=== PATIENT | female | born 1995 | race American Indian/Alaskan Native ===

== ENCOUNTER 2016-04-10 17:08 | Outpatient (CLI) | payer MEDICAID ==
[2016-04-10 17:58] VITALS: BP 113/53
[2016-04-10] MEDS ORDERED: LACTATED RINGERS 500 ML IV ONE (19:00)
== END 2016-04-10 20:10 | disposition home or self-care (01) ==
LOC: TRG 17:08
PROVIDERS: ATTEND Obstetrics & Gynecology
DX: O77.9 Labor and delivery complicated by fetal stress, unspecified (principal); O47.03 False labor before 37 completed weeks of gestation, third trimester; Z3A.32 32 weeks gestation of pregnancy
CPT/HCPCS: 59025; J7120

== ENCOUNTER 2016-06-02 04:14 | Inpatient (IN) | payer MEDICAID ==
[2016-06-02] MEDS ORDERED: LACTATED RINGERS 1,000 ML ONE (04:40)
[2016-06-02] MEDS ORDERED: LACTATED RINGERS 1,000 ML IV ONE (05:41)
[2016-06-02] MEDS ORDERED: XYLOCAINE 2% INFILTRATI ONE ×2 (07:53→10:05)
[2016-06-02] MEDS ORDERED: STADOL IV PRN (07:53)
[2016-06-02] MEDS ORDERED: ZOFRAN IV PRN (07:53)
[2016-06-02] MEDS ORDERED: SUBLIMAZE IV PRN ×2 (07:53→10:05)
[2016-06-02] MEDS ORDERED: ePHEDrine SULFATE IV PRN ×3 (07:53→12:29)
[2016-06-02] MEDS ORDERED: BRETHINE IVP PRN ×2 (07:53→10:05)
[2016-06-02] MEDS ORDERED: MINERAL OIL PO PRN ×2 (07:53→10:05)
[2016-06-02] MEDS ORDERED: BRETHINE SUB-Q PRN ×2 (07:53→10:05)
[2016-06-02] MEDS ORDERED: PITOCin/NS 20 UNIT/1000ML DRIP 20 UNITS/1,000 ML BAG IV SCH (08:00)
[2016-06-02] MEDS ORDERED: PITOCin/NS 30 UNIT/500ML 30 UNITS/500 ML BAG IV SCH ×3 (08:00→11:00)
[2016-06-02] MEDS: LACTATED RINGERS 1,000 ML IV SCH ×2 (08:22→12:32)
[2016-06-02 08:50] LABS: Basophils % (Auto) 0.3 % (0.0-1.8); Eosinophils % (Auto) 0.1 % (0.0-4.3); Hematocrit 32.3 % (30.3-42.9); Hemoglobin 10.5 gm/dl (10.1-14.3); Mean Corpuscular HGB Conc 33 % (30-34); Mean Corpuscular Hemoglobin 28 pg (28-32); Mean Corpuscular Volume 87 fl (79-97); Platelet Count 171 K/mm3 (140-440); Red Blood Count 3.71 M/mm3 (3.65-5.03); Red Cell Distribution Width 14.6 % (13.2-15.2); White Blood Count 10.4 K/mm3 (4.5-11.0)
--- NOTE | 2016-06-02 10:11 | History and Physical Report ---
History of Present Illness Date of examination: 06/02/16 Date of admission: 06/02/16 09:57 Chief complaint: contractions History of present illness: Pt admitted in active labor EDC Calculations LMP: 06/02/2016 EDC Confirmation: 06/02/2016 Gestational Age: 12 5/7 weeks Past History : 3 Term Births: 0 Premature Births: 0 Living Children: 0 Para: 0 Mult. Births: 0 Aborta: 2 Elect. Ab: 1 Spont. Ab: 1 Ectopics: 0 # 1 Delivery date: 2009 Weeks Gestation: 6 Delivery type: EAB # 2 Delivery date: 05/2015 Weeks Gestation: ? 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 of genital herpes: no Partner hx. of genital herpes: no Genetic History Congenital Heart Defect: Mom: no Dad: no Jose Disease: Mom: no Dad: no Thalassemia Mom: no Dad: no Neural Tube Defect Mom: no Dad: no Down's Syndrome Mom: no Dad: no Clark-Sachs Mom: no Dad: no Sickle Cell Disease/Trait Mom: no Dad: no Hemophilia Mom: no Dad: no Muscular Dystrophy Mom: no Dad: no Cystic Fibrosis Mom: no Dad: no Phillips Chorea Mom: no Dad: no Mental Retardation Mom: no Dad: no Fragile X Mom: no Dad: no Other Genetic/Chromosomal Disorder Mom: no Dad: no Child w/other defect Mom: no Dad: no Current Allergies (reviewed today): No known allergies Past History Past Medical History: no pertinent history Past Surgical History: no surgical history 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: 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: abnormal PAP smear Family/Genetic History: none Social history: no significant social history, single - Obstetrical History Expected Date of Delivery: 06/02/16 Actual Gestation: 40 Week(s) 0 Day(s) : 2 Medications and Allergies Allergies Allergy/AdvReac Type Severity Reaction Status Date / Time No Known Allergies Allergy Verified 04/10/16 18:06 Home Medications Medication Instructions Recorded Confirmed Last Taken Type No Known Home Medications [No 06/02/16 06/02/16 Unknown History Reported Home Medications] Active Meds: Active Medications Butorphanol Tartrate (Stadol) 2 mg IV Q2H PRN PRN Reason: Pain , Severe (7-10) Fentanyl (Sublimaze) 100 mcg IV Q2H PRN PRN Reason: Labor Pain Lactated Ringer's (Lactated Ringers) 1,000 mls @ 125 mls/hr IV DIRECT ANASTACIO Last Admin: 06/02/16 08:22 Dose: 125 mls/hr Oxytocin/Sodium Chloride (Pitocin/Ns 20 Unit/1000ml Drip) 20 units in 1,000 mls @ 125 mls/hr IV DIRECT ANASTACIO Oxytocin/Sodium Chloride (Pitocin/Ns 30 Unit/500ml) 30 units in 500 mls @ 1 mls /hr IV TITR ANASTACIO; 1 MILLIUNITS/MIN PRN Reason: Protocol Oxytocin/Sodium Chloride (Pitocin/Ns 30 Unit/500ml) 30 units in 500 mls @ 0 mls /hr IV TITR ANASTACIO; Per Protocol PRN Reason: Protocol Mineral Oil (Mineral Oil) 30 ml PO QHS PRN PRN Reason: Constipation Ondansetron HCl (Zofran) 4 mg IV Q8H PRN PRN Reason: Nausea And Vomiting Review of Systems All systems: negative - Vital Signs Vital signs: Vital Signs Temp Pulse Resp BP 98.8 F 73 18 139/76 06/02/16 05:15 06/02/16 05:15 06/02/16 05:15 06/02/16 05:15 Temp Pulse Resp BP Pulse Ox 98.8 F 76 18 135/73 98 06/02/16 05:15 06/02/16 10:02 06/02/16 05:15 06/02/16 09:29 06/02/16 10:02 - Physical Exam Cardiovascular: Normal S1, Normal S2 Lungs: Positive: Normal air movement Abdomen: Positive: normal appearance, soft. Negative: distention, tenderness Genitourinary (Female): Positive: normal external genitalia, normal perenium Vulva: both: normal - Obstetrical FHR: category 1 Cervical Dilatation: 4.5 Cervical Effacement Percentage: 80 station: -1 Results Result Diagrams: 06/02/16 07:20 Abnormal lab results 06/02/16 Range/Units 07:20 Delta % (Auto) 8.8 H (0.0-7.3) % Delta # 0.9 H (0.0-0.8) K/mm3 Seg Neutrophils % 73.8 H (40.0-70.0) % All other labs normal. Assessment and Plan - Patient Problems (1) 40 weeks gestation of Current Visit: Yes Status: Acute (2) Active labor at term Current Visit: Yes Status: Acute Plan to address problem: -anticipate -pitocin if needed
[2016-06-02] MEDS ORDERED: ePHEDrine SULFATE ONE (10:28)
[2016-06-02] MEDS ORDERED: LACTATED RINGERS 1,000 ML IV SCH (11:00)
[2016-06-02] MEDS ORDERED: fentaNYL-BUPIV 2 MCG/ML-0.125% 200 MCG/100 ML BAG EPIDURAL ONE (12:10)
[2016-06-02] MEDS ORDERED: NARCAN 2 MG/2 ML IV PRN (12:29)
--- NOTE | 2016-06-02 12:29 | Anesthesia Consultation ---
Anesthesia Consult and Med Hx Date of service: 06/02/16 - Airway Anesthetic Teeth Evaluation: Good ROM Head & Neck: Adequate Mental/Hyoid Distance: Adequate Mallampati Class: Class II Intubation Access Assessment: Probably Good - Pre-Operative Health Status ASA Pre-Surgery Classification: ASA2, Emergency Proposed Anesthetic Plan: Epidural, Spinal - Pulmonary Hx Asthma: No - Cardiovascular System Hx Hypertension: No - Central Nervous System Hx Seizures: No Hx Psychiatric Problems: No - Endocrine Hx Renal Disease: No Hx Hypothyroidism: No Hx Hyperthyroidism: No - Hematic Hx Anemia: No Hx Sickle Cell Disease: Yes (trait) - Other Systems Hx Alcohol Use: No Hx Obesity: Yes
--- NOTE | 2016-06-02 12:42 | Progress Note ---
Assessment and Plan - Patient Problems (1) 40 weeks gestation of Current Visit: Yes Status: Acute (2) Active labor at term Current Visit: Yes Status: Acute Plan to address problem: -pitocin at this time -anticipate vaginal delivery Subjective - Subjective Date of service: 06/02/16 Principal diagnosis: Active labor at term Interval history: Pt comfortable with epidural in in place. Patient reports: movement normal, no new complaints Objective - Vital Signs Vital Signs: Vital Signs - 12hr 06/02/16 06/02/16 06/02/16 05:15 05:16 09:22 Temperature 98.8 F Pulse Rate 73 82 Pulse Rate [ 73 From Monitor] Respiratory 18 Rate Blood Pressure 139/76 Blood Pressure 139/76 [Left Arm] O2 Sat by Pulse 98 Oximetry 06/02/16 06/02/16 06/02/16 09:27 09:29 09:32 Temperature Pulse Rate 82 72 77 Pulse Rate [ From Monitor] Respiratory Rate Blood Pressure 135/73 Blood Pressure [Left Arm] O2 Sat by Pulse 98 97 Oximetry 06/02/16 06/02/16 06/02/16 09:37 09:42 09:47 Temperature Pulse Rate 79 78 78 Pulse Rate [ From Monitor] Respiratory Rate Blood Pressure Blood Pressure [Left Arm] O2 Sat by Pulse 98 97 98 Oximetry 06/02/16 06/02/16 06/02/16 09:52 09:57 10:02 Temperature Pulse Rate 91 H 78 76 Pulse Rate [ From Monitor] Respiratory Rate Blood Pressure Blood Pressure [Left Arm] O2 Sat by Pulse 95 98 98 Oximetry 06/02/16 06/02/16 06/02/16 11:06 11:11 11:13 Temperature Pulse Rate 101 H 60 76 Pulse Rate [ From Monitor] Respiratory Rate Blood Pressure 145/89 139/68 Blood Pressure [Left Arm] O2 Sat by Pulse 91 98 Oximetry 06/02/16 06/02/16 06/02/16 11:16 11:21 11:23 Temperature Pulse Rate 76 78 81 Pulse Rate [ From Monitor] Respiratory Rate Blood Pressure 153/78 Blood Pressure [Left Arm] O2 Sat by Pulse 99 99 Oximetry 06/02/16 06/02/16 06/02/16 11:25 11:26 11:27 Temperature Pulse Rate 77 81 76 Pulse Rate [ From Monitor] Respiratory Rate Blood Pressure 146/67 127/60 Blood Pressure [Left Arm] O2 Sat by Pulse 99 Oximetry 06/02/16 06/02/16 06/02/16 11:29 11:31 11:33 Temperature Pulse Rate 90 78 68 Pulse Rate [ From Monitor] Respiratory Rate Blood Pressure 130/62 130/69 124/64 Blood Pressure [Left Arm] O2 Sat by Pulse 98 Oximetry 06/02/16 06/02/16 06/02/16 11:35 11:36 11:37 Temperature Pulse Rate 64 68 70 Pulse Rate [ From Monitor] Respiratory Rate Blood Pressure 126/66 124/64 Blood Pressure [Left Arm] O2 Sat by Pulse 98 Oximetry 06/02/16 06/02/16 06/02/16 11:39 11:41 11:43 Temperature Pulse Rate 70 68 71 Pulse Rate [ From Monitor] Respiratory Rate Blood Pressure 127/67 124/67 126/71 Blood Pressure [Left Arm] O2 Sat by Pulse 98 Oximetry 06/02/16 06/02/16 06/02/16 11:45 11:46 11:47 Temperature Pulse Rate 67 71 72 Pulse Rate [ From Monitor] Respiratory Rate Blood Pressure 124/69 127/71 Blood Pressure [Left Arm] O2 Sat by Pulse 98 Oximetry 06/02/16 06/02/16 06/02/16 11:49 11:51 11:53 Temperature Pulse Rate 73 70 67 Pulse Rate [ From Monitor] Respiratory Rate Blood Pressure 130/70 122/67 121/58 Blood Pressure [Left Arm] O2 Sat by Pulse 98 Oximetry 06/02/16 06/02/16 06/02/16 11:55 11:56 11:57 Temperature Pulse Rate 66 63 63 Pulse Rate [ From Monitor] Respiratory Rate Blood Pressure 102/65 111/56 Blood Pressure [Left Arm] O2 Sat by Pulse 99 Oximetry 06/02/16 06/02/16 06/02/16 11:59 12:01 12:06 Temperature Pulse Rate 70 71 69 Pulse Rate [ From Monitor] Respiratory Rate Blood Pressure 116/58 114/55 Blood Pressure [Left Arm] O2 Sat by Pulse 97 98 Oximetry 06/02/16 06/02/16 06/02/16 12:11 12:16 12:21 Temperature Pulse Rate 66 66 69 Pulse Rate [ From Monitor] Respiratory Rate Blood Pressure 115/53 Blood Pressure [Left Arm] O2 Sat by Pulse 98 98 100 Oximetry 06/02/16 06/02/16 12:26 12:31 Temperature Pulse Rate 71 67 Pulse Rate [ From Monitor] Respiratory Rate Blood Pressure 110/58 Blood Pressure [Left Arm] O2 Sat by Pulse 98 98 Oximetry - Exam Cervical Dilatation: 5 (SROM with clear fluid. ISE and IUPC placed without difficulty) station: 90 Uterine Contraction Duration: -1 Uterine Contraction Pattern: Regular Uterine Tone Measurement Phase: Resting - Labs Labs: Abnormal Labs 06/02/16 07:20 [place] % (Auto) 8.8 H [place] # 0.9 H Seg Neutrophils % 73.8 H Laboratory Results - last 24 hr 06/02/16 06/02/16 07:20 07:20 WBC 10.4 RBC 3.71 Hgb 10.5 Hct 32.3 MCV 87 MCH 28 MCHC 33 RDW 14.6 Plt Count 171 Lymph % (Auto) 17.0 [place] % (Auto) 8.8 H Eos % (Auto) 0.1 Baso % (Auto) 0.3 Lymph # 1.8 [place] # 0.9 H Eos # 0.0 Baso # 0.0 Seg Neutrophils % 73.8 H Seg Neutrophils # 7.7 Blood Type O POSITIVE Antibody Screen Negative
[2016-06-02] MEDS ORDERED: fentaNYL-BUPIV 2 MCG/ML-0.125% 200 MCG/100 ML BAG EPIDURAL SCH (13:00)
[2016-06-02] MEDS: PITOCin/NS 30 UNIT/500ML 30 UNITS/500 ML BAG IV SCH ×5 (13:21→15:30)
[2016-06-02] MEDS ORDERED: MILK OF MAGNESIA PO PRN (18:11)
[2016-06-02] MEDS ORDERED: TYLENOL PO PRN (18:11)
[2016-06-02] MEDS ORDERED: DULCOLAX PR PRN (18:11)
[2016-06-02] MEDS ORDERED: LANSINOH TP PRN (18:11)
[2016-06-02] MEDS ORDERED: PHENERGAN PO PRN (18:11)
[2016-06-02] MEDS ORDERED: TUCKS PAD TP PRN (18:11)
[2016-06-02] MEDS ORDERED: NORCO 5/325 PO PRN (18:11)
[2016-06-02] MEDS ORDERED: BENADRYL PO PRN (18:11)
[2016-06-02] MEDS ORDERED: DERMOPLAST TP PRN (18:11)
[2016-06-02] MEDS ORDERED: PHENERGAN PR PRN (18:11)
--- NOTE | 2016-06-02 18:18 | Procedure Note ---
OB Delivery Note - Delivery Date of Delivery: 06/02/16 Surgeon: GRACIELA ANDERSON Estimated blood loss: 200cc - Vaginal Delivery presentation: vertex Delivery position: OA Intrapartum events: none Delivery induction: none Delivery augmentation: pitocin Delivery monitor: external FHT, external uterine, internal FHT, internal uterine Route of delivery: Delivery placenta: spontaneous Delivery cord: nuchal cord (x1 easily reduced), 3 umbilical vessels Episiotomy: none Delivery laceration: 1st degree (right labial) Delivery repair: vicryl (3-0) Anesthesia: epidural Delivery comments: Delivery as above without complications. No shoulder dystocia. Nuchal cord easily reduced after delivery of the head. Cord clamped x 2 and cut x1 by foc and infant was placed on maternal abdomen skin to skin. Placenta delivered spontaneously intact. Cord blood was collected. 1st degree rt labial laceration noted and repaired in usual fashion. EBL 200ml. and mother stable in LDR. - Infant A at 1 minute: 8 at 5 minutes: 9 Gender: Female (6lbs 1 oz)
[2016-06-02] MEDS ORDERED: SODIUM CHLORIDE FLUSH SYRINGE 10 ML IV NR (19:00)
[2016-06-03] MEDS: MOTRIN PO SCH ×3 (01:19→13:45)
[2016-06-03 06:15] LABS: Hematocrit 26.5 % (30.3-42.9); Hemoglobin 8.7 gm/dl (10.1-14.3)
--- NOTE | 2016-06-03 10:24 | Progress Note ---
Assessment and Plan - Patient Problems (1) 40 weeks gestation of Current Visit: Yes Status: Resolved (2) Active labor at term Current Visit: Yes Status: Resolved (3) Normal delivery at term Current Visit: Yes Status: Acute Plan to address problem: -routine pp care -d/c home in am Subjective - Subjective Date of service: 06/03/16 Principal diagnosis: PPD #1 s/p Interval history: Pt doing well. She desires d/c home in am. Patient reports: appetite normal, voiding normally, pain well controlled, no dizzy ambulation [place]: doing well, nursing well Objective - Vital Signs Latest vital signs: Vital Signs Temp Pulse Pulse Resp BP BP Pulse Ox 06/03/16 07:45 97.8 F 82 20 127/72 06/03/16 01:00 98.3 F 73 20 142/92 06/02/16 20:45 98.6 F 86 20 142/85 06/02/16 20:00 86 18 132/73 06/02/16 19:46 86 132/73 06/02/16 19:35 100 H 18 130/75 06/02/16 19:32 100 H 130/75 06/02/16 19:16 86 145/63 06/02/16 19:02 91 H 194/88 06/02/16 18:46 88 144/71 06/02/16 18:31 85 128/60 06/02/16 18:16 86 128/61 06/02/16 18:05 93 H 99 06/02/16 18:01 95 H 123/58 06/02/16 18:00 92 H 99 06/02/16 17:57 98 H 129/59 06/02/16 17:55 100 H 99 06/02/16 17:50 92 H 99 06/02/16 17:46 98 H 88/45 06/02/16 17:45 106 H 99 06/02/16 17:40 113 H 100 06/02/16 17:35 95 H 99 06/02/16 17:33 103 H 130/73 06/02/16 17:30 92 H 100 06/02/16 17:25 98 H 100 06/02/16 17:20 85 100 06/02/16 17:17 93 H 118/81 06/02/16 17:15 92 H 99 06/02/16 17:10 97 H 99 03/25/17 17:05 87 99 06/02/16 17:00 82 99 17 16:55 94 H 99 17 16:50 72 100 17 16:47 85 119/60 17 16:45 77 100 17 16:40 78 99 17 16:35 77 99 17 16:32 77 122/58 17 16:30 97.7 F 74 99 06/02/16 16:25 82 99 06/02/16 16:20 82 98 06/02/16 16:17 87 115/69 17 16:15 87 97 06/02/16 16:10 82 100 06/02/16 16:05 76 100 06/02/16 16:02 78 115/66 06/02/16 16:00 78 99 06/02/16 15:55 71 100 06/02/16 15:50 78 99 06/02/16 15:47 80 113/61 06/02/16 15:45 71 98 06/02/16 15:40 73 99 06/02/16 15:35 71 100 06/02/16 15:34 74 107/57 06/02/16 15:30 87 99 06/02/16 15:25 90 99 06/02/16 15:20 74 99 06/02/16 15:17 73 133/62 06/02/16 15:15 69 100 06/02/16 15:10 76 100 06/02/16 15:09 84 85 06/02/16 15:05 75 98 06/02/16 15:03 90 88 06/02/16 15:01 76 128/70 06/02/16 15:00 78 97 06/02/16 14:55 80 97 06/02/16 14:50 82 98 17 14:46 75 132/69 17 14:45 74 97 17 14:40 75 98 17 14:35 68 97 06/02/16 14:32 74 131/72 17 14:31 78 97 17 14:30 98 F 17 14:25 72 97 06/02/16 14:20 71 96 06/02/16 14:17 69 132/69 06/02/16 14:15 71 99 06/02/16 14:11 85 75 L 06/02/16 14:10 76 97 06/02/16 14:05 77 97 06/02/16 14:02 75 130/68 06/02/16 14:00 75 97 06/02/16 13:55 73 97 06/02/16 13:50 64 98 06/02/16 13:46 79 124/62 97 06/02/16 13:41 74 98 06/02/16 13:36 76 99 06/02/16 13:30 83 97 06/02/16 13:26 83 97 06/02/16 13:21 81 97 06/02/16 13:17 75 129/85 06/02/16 13:16 83 98 06/02/16 13:11 73 99 06/02/16 13:06 74 99 06/02/16 13:01 72 129/75 98 06/02/16 12:56 70 99 06/02/16 12:51 70 100 06/02/16 12:47 20 06/02/16 12:46 71 99 06/02/16 12:41 71 98 06/02/16 12:36 71 98 06/02/16 12:31 67 110/58 98 06/02/16 12:30 98.1 F 06/02/16 12:26 71 98 06/02/16 12:21 69 100 06/02/16 12:16 66 115/53 98 06/02/16 12:11 66 98 06/02/16 12:06 69 98 06/02/16 12:01 71 114/55 97 06/02/16 11:59 70 116/58 06/02/16 11:57 63 111/56 06/02/16 11:56 63 99 06/02/16 11:55 66 102/65 06/02/16 11:53 67 121/58 06/02/16 11:51 70 122/67 98 06/02/16 11:49 73 130/70 06/02/16 11:47 72 127/71 06/02/16 11:46 71 98 06/02/16 11:45 67 124/69 06/02/16 11:43 71 126/71 06/02/16 11:41 68 124/67 98 03/25/17 11:39 70 127/67 06/02/16 11:37 70 124/64 06/02/16 11:36 68 98 06/02/16 11:35 64 126/66 06/02/16 11:33 68 124/64 06/02/16 11:31 78 130/69 98 06/02/16 11:29 90 130/62 06/02/16 11:27 76 127/60 06/02/16 11:26 81 99 06/02/16 11:25 77 146/67 06/02/16 11:23 81 153/78 06/02/16 11:21 78 99 06/02/16 11:16 76 99 06/02/16 11:13 76 139/68 06/02/16 11:11 60 145/89 98 06/02/16 11:06 101 H 91 Intake and Output 06/02/16 06/03/16 06/03/16 22:59 06:59 14:59 Intake Total 120 600 Output Total 300 400 Balance -180 200 Intake: Oral 120 600 Output: Urine 300 400 Indwelling Catheter 300 Void 400 Other: Total, Intake Amount 120 120 Total, Output Amount 300 400 # Voids Void 300 600 Estimated Blood Loss 200 - Exam Breasts: Present: normal Cardiovascular: Present: Normal S1, Normal S2 Lungs: Present: Clear to auscultation, Normal air movement Abdomen: Present: normal appearance, soft. Absent: distention, tenderness, guarding Uterus: Present: normal, firm, fundal height below umbilicus. Absent: bogginess , tenderness Extremities: Present: normal. Absent: tenderness, edema Deep Tendon Reflex Grade: Normal +2 - Labs Labs: Abnormal lab results 06/03/16 Range/Units 05:45 Hgb 8.7 L (10.1-14.3) gm/dl Hct 26.5 L (30.3-42.9) %
[2016-06-04] MEDS: MOTRIN PO SCH ×3 (00:17→12:38)
[2016-06-04] MEDS ORDERED: BOOSTRIX IM ONE (06:00)
--- NOTE | 2016-06-04 06:29 | Discharge Summary ---
Providers - Providers Date of Admission: 06/02/16 09:57 Date of discharge: 06/04/16 (pt desires d/c ) Attending physician: ERWIN WORRELL Primary care physician: DARON DELUNA Hospitalization Reason for admission: active labor Delivery: Episiotomy: none Laceration: none Other procedures: none complications: none Discharge diagnosis: IUP at term delivered baby: female Hospital course: uncomplicated vaginal delivery Pt w/o complaint VSS BP 130/80 FF below umb Lochia small Perineum intact H&H 8.7 /26.5 drop r/t blood loss from delivery. Doing well s/p vag delivery P: d/c today with instructions Pt will return to our practice for PP care Number provided She will be seen in the [facility] office RX provided Condition at discharge: Good Disposition: DISCHARGED TO HOME OR SELFCARE - Discharge Diagnoses (1) Normal delivery at term Status: Acute Comment: RTO 4 weeks for PP care Plan - Provider Discharge Summary Activity: routine, no sex for 6 weeks, no heavy lifting 4 weeks, no strenuous exercise Diet: routine Instructions: routine Additional instructions: [] Smoking cessation referral if applicable(refer to patient education folder for contact #) [] Refer to [facility]'s [facility] Booklet Call your doctor immediately for: * Fever > 100.5 * Heavy vaginal bleeding ( >1 pad per hour) * Severe persistent headache * Shortness of breath * Reddened, hot, painful area to leg or breast * Drainage or odor from incision. * Keep incision clean and dry at all times and follow doctor's instructions regarding bathing/showering - Follow up plan Follow up: DARON DELUNA MD [Primary Care Provider] - 07/02/16 (Congratulations! Please call [phone] to schedule your visit in 4 weeks. Please take medications as prescribed. Call with headache, blurred vision, chest pain. Call with any concerns. )
[2016-06-04 12:31] VITALS: BP 139/84
== END 2016-06-04 13:51 | disposition home or self-care (01) | DRG 775 ==
LOC: TRG 04:14 → LD 09:57 → OB 20:03
PROVIDERS: ADMIT Obstetrics & Gynecology; ATTEND Obstetrics & Gynecology
PROC: 10E0XZZ Delivery of Products of Conception, External Approach (ICD-10-PCS; principal; 2016-06-02)
PROC: 0UQMXZZ Repair Vulva, External Approach (ICD-10-PCS; 2016-06-02)
PROC: 3E0S3CZ (ICD-10-PCS; 2016-06-02)
PROC: 00HU33Z Insertion of Infusion Device into Spinal Canal, Percutaneous Approach (ICD-10-PCS; 2016-06-02)
DX: O99.214 Obesity complicating childbirth (principal); O69.81X0 Labor and delivery complicated by cord around neck, without compression, not applicable or unspecified; O70.0 First degree perineal laceration during delivery; E66.9 Obesity, unspecified; Z3A.40 40 weeks gestation of pregnancy; Z37.0 Single live birth; Z68.35 Body mass index [BMI] 35.0-35.9, adult
CPT/HCPCS: 36415; 85014; 85018; 85025; 86592; 86850; 86900; 86901; 90471; 90715; 99211; G0463; J2590; J7120

== ENCOUNTER 2019-05-07 11:32 | Inpatient (IN) | payer MEDICAID ==
[2019-05-07] MEDS ORDERED: LIDOCAINE (2%) 20 MG/1 ML VIAL 20 ML MDV INFILTRATI ONE ×2 (11:39)
[2019-05-07] MEDS ORDERED: ePHEDrine SULFATE 50 MG/1 ML INJ IV PRN (11:39)
[2019-05-07] MEDS ORDERED: TERBUTALINE 1 MG/1 ML INJ SUB-Q PRN ×2 (11:39)
[2019-05-07] MEDS ORDERED: TERBUTALINE 1 MG/1 ML INJ IVP PRN (11:39)
[2019-05-07] MEDS ORDERED: fentaNYL 100 MCG/2 ML INJ IV PRN (11:39)
[2019-05-07] MEDS ORDERED: MINERAL OIL 30 ML ORAL LIQD PO PRN ×2 (11:39)
[2019-05-07] MEDS ORDERED: OXYTOCIN DRIP 30 UNITS/500 ML BAG IV SCH (12:00)
[2019-05-07] MEDS ORDERED: OXYTOCIN 20 UNIT/1000ML DRIP 20 UNITS/1,000 ML BAG IV SCH ×2 (12:00)
[2019-05-07] MEDS ORDERED: LACTATED RINGERS 1,000 ML IV SCH ×2 (12:00)
--- NOTE | 2019-05-07 12:00 | History and Physical Report ---
History of Present Illness Date of examination: 05/07/19 (sent from [facility] office advance dilated) History of present illness: EDC Confirmation: 05/07/2019 Gestational Age: 13 1/7 weeks Past History : 4 Term Births: 1 Premature Births: 0 Living Children: 1 Para: 1 Mult. Births: 0 Prev : 0 Prev. attempt? 0 Aborta: 2 Elect. Ab: 1 Spont. Ab: 1 Ectopics: 0 # 1 Delivery date: 2009 Weeks Gestation: 6 Delivery type: EAB # 2 Delivery date: 05/2015 Weeks Gestation: ? 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 % Dietary Counseling: pn yes Past Medical History: Left ovarian cyst Past Surgical History: Reviewed history from 11/24/2015 and no changes required: umbilical hernia 9yo Family History Summary: PGF - Has Family History of Diabetes - Entered On: 10/31/2018 Social History: Reviewed history from 11/24/2015 and no changes required: Patient is single Past Medical History Abnormal PAP: negative SHAYY Exposure: negative Infertility: negative Uterine Anomaly: negative Uterine Surgery (not C/S): negative Other Gynecologic Problems: negative Social Hx: Patient is single Infection History Hx of STD: none HIV Risk Eval: no Hepatitis B Risk Eval: low risk Personal hx. of genital herpes: no Partner hx. of genital herpes: no Rash, Viral, or Febrile illness since last LMP? no Varicella/Chicken Pox Status: Unknown TB Risk: no Genetic History Congenital Heart Defect: Mom: no Dad: no Jose Disease: Mom: no Dad: no Thalassemia Mom: no Dad: no Neural Tube Defect Mom: no Dad: no Down's Syndrome Mom: no Dad: no Clark-Sachs Mom: no Dad: no Sickle Cell Disease/Trait Mom: yes Dad: no Comments: FOB neg SCT Hemophilia Mom: no Dad: no Muscular Dystrophy Mom: no Dad: no Cystic Fibrosis Mom: no Dad: no Georgette Chorea Mom: no Dad: no Mental Retardation Mom: no Dad: no Fragile X Mom: no Dad: no Other Genetic/Chromosomal Disorder Mom: no Dad: no Child w/other defect Mom: no Dad: no Enviromental Exposures Xray Exposure: no Medication, drug, or alcohol use since LMP: no Chemical/Other Exposure: no Exposure to Cat Liter: no Hx of Parvovirus (Fifth Disease): no Occupational Exposure to Children: none Active Medications (reviewed today): IRON TABS () FORMULA 27-1 MG ORAL TABLET ( VIT-FE FUMARATE-FA) 1 po q day as directed Current Allergies (reviewed today): No known allergies Past History - Obstetrical History Expected Date of Delivery: 05/07/19 Actual Gestation: 40 Week(s) 0 Day(s) : 4 Para: 1 Hx # Term Pregnancies: 1 (2016) Number of Pregnancies: 0 Spontaneous Abortions: 1 Induced : 1 Number of Living Children: 1 Medications and Allergies Allergies Allergy/AdvReac Type Severity Reaction Status Date / Time No Known Allergies Allergy Verified 04/10/16 18:06 Home Medications Medication Instructions Recorded Confirmed Last Taken Type Docusate Sodium [Colace] 100 mg PO BID PRN #60 capsule 06/04/16 Unknown Rx Ferrous Sulfate [Feosol 325 MG tab] 325 mg PO BID #60 tablet 06/04/16 Unknown Rx Active Meds: Active Medications Ephedrine Sulfate (Ephedrine Sulfate) 10 mg IV Q2M PRN PRN Reason: Hypotension Fentanyl (Sublimaze) 100 mcg IV Q2H PRN PRN Reason: Labor Pain Oxytocin/Sodium Chloride (Pitocin/Ns 20 Unit/1000ml Drip) 20 units in 1,000 mls @ 125 mls/hr IV DIRECT ANASTACIO Oxytocin/Sodium Chloride (Pitocin/Ns 30 Unit/500ml) 30 units in 500 mls @ 4 mls/hr IV TITR ANASTACIO; Protocol Oxytocin/Sodium Chloride (Pitocin/Ns 20 Unit/1000ml Drip) 20 units in 1,000 mls @ 125 mls/hr IV DIRECT ANASTACIO Lactated Ringer's (Lactated Ringers) 1,000 mls @ 125 mls/hr IV DIRECT ANASTACIO Mineral Oil (Mineral Oil) 30 ml PO QHS PRN PRN Reason: Constipation Mineral Oil (Mineral Oil) 30 ml PO QHS PRN PRN Reason: Constipation Terbutaline Sulfate (Brethine) 0.25 mg SUB-Q ONCE PRN PRN Reason: Hyperstimulation/Hypertonicity Terbutaline Sulfate (Brethine) 0.25 mg SUB-Q ONCE PRN PRN Reason: Hyperstimulation/Hypertonicity Terbutaline Sulfate (Brethine) 0.25 mg IVP ONCE PRN PRN Reason: Hyperstimulation/Hypertonicity - Vital Signs Vital signs: Vital Signs Pulse Pulse Ox 113 H 99 05/07/19 11:54 05/07/19 11:54 Temp Pulse Resp BP Pulse Ox 113 H 99 05/07/19 11:54 05/07/19 11:54 - Physical Exam Breasts: Positive: deferred Cardiovascular: Regular rate, Normal S1, Normal S2 Lungs: Positive: Normal air movement Abdomen: Positive: normal appearance, soft, normal bowel sounds. Negative: distention, tenderness Genitourinary (Female): Positive: normal external genitalia Vulva: both: normal Vagina: Positive: normal moisture. Negative: discharge Cervix: Negative: lesion, discharge Uterus: Positive: normal size, normal contour Adnexa: both: normal Anus/Rectum: Positive: normal perianal skin, heme negative. Negative: rectal mass, hemorrhoids Extremities: Positive: normal Deep Tendon Reflex Grade: Normal +2 - Obstetrical FHR: category 1 Uterine Contraction Monitor Mode: External Cervical Dilatation: 6 (SROM clear) Cervical Effacement Percentage: 70 station: -1 Uterine Contraction Pattern: Irregular Uterine Tone Measurement Phase: Resting Uterine Contraction Intensity: Mild Results All other labs normal. GBS Negative HBsAg Screen Negative Negative *1 RPR Non Reactive Non Reactive *2 Rubella Antibodies, IgG 3.03 index Immune >0.99 *3 Non-immune <0.90 Equivocal 0.90 - 0.99 Immune >0.99 ABO Grouping O *4 Rh Factor Positive *5 Please note: Prior records for this patient's ABO / Rh type are not available for additional verification. Antibody Screen Negative Negative *6 WBC 7.4 x10E3/uL 3.4-10.8 *7 RBC 3.88 x10E6/uL 3.77-5.28 *8 Hemoglobin 11.3 g/dL 11.1-15.9 *9 Hematocrit [L] 33.9 % 34.0-46.6 *10 MCV 87 fL 79-97 *11 MCH 29.1 pg 26.6-33.0 *12 MCHC 33.3 g/dL 31.5-35.7 *13 RDW 13.6 % 12.3-15.4 *14 Platelets 229 x10E3/uL 150-450 *15 Neutrophils 79 % Not Estab. *16 Lymphs 13 % Not Estab. *17 Monocytes 8 % Not Estab. *18 Eos 0 % Not Estab. *19 Basos 0 % Not Estab. *20 ! Immature Cells <No Reported Value> *21 Neutrophils (Absolute) 5.8 x10E3/uL 1.4-7.0 *22 Lymphs (Absolute) 1.0 x10E3/uL 0.7-3.1 *23 Monocytes(Absolute) 0.6 x10E3/uL 0.1-0.9 *24 Eos (Absolute) 0.0 x10E3/uL 0.0-0.4 *25 Baso (Absolute) 0.0 x10E3/uL 0.0-0.2 *26 ! Immature Granulocytes 0 % Not Estab. *27 ! Immature Grans (Abs) 0.0 x10E3/uL 0.0-0.1 *28 ! NRBC <No Reported Value> *29 Hematology Comments: <No Reported Value> *30 Cannabinoid See Final Results ng/mL Cutoff=50 *34 Tests: (3) Cannabinoid Confirmation, Ur ([id number]) ! Cannabinoid [A] Positive Cutoff=50 *35 ! Carboxy THC GC/MS Conf 41 ng/mL Cutoff=15 *36 Tests: (5) AFP Tetra ([id number]) ! Results Report *41 ! Test Results: *Screen Negative* *42 ! Gest. Age on Collection Date 18.6 WEEKS *43 Assessment and Plan 24yo @ 40 weeks today Sent from office in labor. GBS negative. All orders in EMR. - Patient Problems (1) Active labor at term Onset Date: ~05/07/19 Current Visit: Yes Status: Resolved
[2019-05-07 13:05] LABS: Hemoglobin 11.1 gm/dl (10.1-14.3); Mean Corpuscular HGB Conc 34 % (30-34); Mean Corpuscular Volume 83 fl (79-97); Platelet Count 208 K/mm3 (140-440); Red Blood Count 3.97 M/mm3 (3.65-5.03); Red Cell Distribution Width 14.4 % (13.2-15.2)
[2019-05-07] MEDS ORDERED: METHYLERGONOVINE MALEATE 0.2 MG/ML VIAL IM ONE ×2 (15:01→15:08)
[2019-05-07] MEDS ORDERED: WITCH HAZEL/ GLYCERIN PAD TP PRN (15:09)
[2019-05-07] MEDS ORDERED: PROMETHAZINE 25 MG TAB PO PRN (15:09)
[2019-05-07] MEDS ORDERED: diphenhydrAMINE 25 MG CAP PO PRN (15:09)
[2019-05-07] MEDS ORDERED: LANOLIN/ZINC/DIMETHICONE (LANSINOH) 7 GM TP PRN (15:09)
[2019-05-07] MEDS ORDERED: ONDANSETRON 4 MG/2 ML INJ IV PRN (15:09)
[2019-05-07] MEDS ORDERED: ACETAMINOPHEN 325 MG TAB PO PRN (15:09)
[2019-05-07] MEDS ORDERED: MAGNESIUM HYDROXIDE (MOM) ORAL LIQD UDC PO PRN (15:09)
--- NOTE | 2019-05-07 15:21 | Procedure Note ---
OB Delivery Note - Delivery Date of Delivery: 05/07/19 Assisted Sales Representative: DOUG KESSLER Estimated blood loss: 300cc - Vaginal Delivery presentation: vertex Delivery position: OA Intrapartum events: none Delivery induction: none Delivery augmentation: pitocin Delivery monitor: external FHT, external uterine Route of delivery: Delivery placenta: spontaneous Delivery cord: 3 umbilical vessels Episiotomy: none Delivery laceration: 2nd degree Delivery repair: vicryl Anesthesia: local Delivery comments: Instrument and sponge and needle count correct x 2. JOSEPH present. over intact perineum OA to mom's abdomen skin to skin. Cord blood obtained. Placenta and membrane delivered complete and intact, 3 vessel cord. Pit IVFs. Several mod clots expressed, Methergin IM given. 2nd degree laceration repaired with 2-0 vicryl over Lidocaine. 8/9, EBL 300, Wgt 7-11. Mom and baby remain LDR stable. - Infant A at 1 minute: 8 at 5 minutes: 9 Infant Gender: Male (wgt 7-11)
[2019-05-07] MEDS: IBUPROFEN 800 MG TAB PO SCH ×2 (15:28→22:33)
[2019-05-07] MEDS: METHYLERGONOVINE 0.2 MG TABLET PO SCH (22:33)
[2019-05-08] MEDS: IBUPROFEN 800 MG TAB PO SCH ×2 (05:20→14:45)
[2019-05-08] MEDS: METHYLERGONOVINE 0.2 MG TABLET PO SCH ×2 (05:20→13:39)
[2019-05-08] MEDS ORDERED: TETANUS,DIPH,PERTUSS(ACELL) VACCINE 0.5 ML SYRINGE IM ONE (06:00)
[2019-05-08 06:19] LABS: Hematocrit 26.6 % (30.3-42.9); Hemoglobin 8.9 gm/dl (10.1-14.3)
--- NOTE | 2019-05-08 07:49 | Discharge Summary ---
Providers - Providers Date of Admission: 05/07/19 11:33 Date of discharge: 05/08/19 (desires d/c home today) Attending physician: DARON DELUNA Primary care physician: DARON DELUNA Hospitalization Reason for admission: Condition: Good Pertinent studies: post delivery H&H 8.9/26.6, asymptomatic anemia from acute blood loss Procedures: Hospital course: uncomplicated and course Disposition: - TO HOME OR SELFCARE - Discharge Diagnoses (1) Anemia due to blood loss, acute Status: Acute (2) Normal delivery at term Status: Acute Comment: RTO 4 weeks for PP care Core Measure Documentation - Palliative Care Palliative Care/ Comfort Measures: Not Applicable - Core Measures Any of the following diagnoses?: none Exam - Constitutional Vitals: Temp Pulse Resp BP Pulse Ox 98.5 F 82 20 123/78 97 05/08/19 00:01 05/08/19 00:01 05/08/19 00:01 05/08/19 00:01 05/08/19 00:01 General appearance: Present: no acute distress, well-nourished - EENT Eyes: Present: PERRL ENT: hearing intact, clear oral mucosa - Neck Neck: Present: supple, normal ROM - Respiratory Respiratory effort: normal Respiratory: bilateral: CTA - Cardiovascular Heart Sounds: Present: S1 & S2. Absent: rub, click - Extremities Extremities: pulses symmetrical, No edema - Abdominal General gastrointestinal: Present: soft, non-tender, non-distended, normal bowel sounds Female genitourinary: Present: normal - Integumentary Integumentary: Present: clear, warm, dry - Musculoskeletal Musculoskeletal: gait normal, strength equal bilaterally - Psychiatric Psychiatric: appropriate mood/affect, intact judgment & insight - Neurologic Neurologic: CNII-XII intact, moves all extremities - Additional findings Additional findings: fundus firm, lochia scant, VSSAF, Plan Activity: no restrictions Diet: regular Follow up with: DARON DELUNA MD [Primary Care Provider] - 7 Days (Congratulations! Please call [phone] to schedule your son's circumcision in 1 week and your visit in 4 weeks. Bring EMLA cream to your son's appointment and await for futher teaching. Call for any questions or concerns.) Prescriptions: Lidocain2.5%/Prilocai2.5% [Emla] 5 gm TP ONCE PRN #1 tube PRN Reason: Pain Ferrous Sulfate [Feosol 325 MG tab] 325 mg PO BID #60 tablet Ibuprofen [Motrin 800 MG tab] 800 mg PO Q8HR PRN #30 tablet PRN Reason: Pain
[2019-05-08] MEDS ORDERED: METHYLERGONOVINE 0.2 MG TABLET PO SCH (14:00)
[2019-05-08] MEDS ORDERED: MEASLES, MUMPS & RUBELLA 12,500 UNIT/0.5 ML VACCINE SUB-Q ONE (15:09)
[2019-05-08 16:33] VITALS: BP 128/85
== END 2019-05-08 16:35 | disposition home or self-care (01) | DRG 775 ==
LOC: TRG 11:32 → LD 11:33 → OB 17:15
PROVIDERS: ADMIT Obstetrics & Gynecology; ATTEND Obstetrics & Gynecology
PROC: 10E0XZZ Delivery of Products of Conception, External Approach (ICD-10-PCS; principal; 2019-05-07)
PROC: 0KQM0ZZ Repair Perineum Muscle, Open Approach (ICD-10-PCS; 2019-05-07)
PROC: 3E0234Z Introduction of Serum, Toxoid and Vaccine into Muscle, Percutaneous Approach (ICD-10-PCS; 2019-05-08)
PROC: 3E0134Z Introduction of Serum, Toxoid and Vaccine into Subcutaneous Tissue, Percutaneous Approach (ICD-10-PCS; 2019-05-08)
DX: O70.1 Second degree perineal laceration during delivery (principal); Z37.0 Single live birth; Z3A.40 40 weeks gestation of pregnancy; O90.81 Anemia of the puerperium; D62 Acute posthemorrhagic anemia; Z23 Encounter for immunization
CPT/HCPCS: 36415; 85014; 85018; 85027; 86592; 86850; 86900; 86901; G0378; J2210; J2590; J3010; J7120